=== PATIENT | male | born 1965 | race African-American/Black ===

== ENCOUNTER 2019-04-07 02:50 | Emergency (ER) | payer SELFPAY ==
[~2019-04-07] VITALS: Ht 170.2 cm; Wt 113.0 kg
[2019-04-07] MEDS ORDERED: METHYLPREDNISOLONE SOD SUCC 125 MG/2 ML VIAL IV STA (02:55)
[2019-04-07] MEDS ORDERED: ALBUTEROL (0.083%) 2.5MG/3ML NEB HHN STA (02:55)
[2019-04-07] MEDS ORDERED: MAGNESIUM 2 G PREMIX 50 ML IV STA (02:55)
[2019-04-07] MEDS ORDERED: IPRATROPIUM BROMIDE (0.02%) 0.5MG/2.5ML NEB HHN STA (02:55)
[2019-04-07 03:11] VITALS: BP 120/84
== END 2019-04-07 05:22 | disposition home or self-care (01) ==
LOC: ER 02:50
DX: J44.1 Chronic obstructive pulmonary disease with (acute) exacerbation (principal); E11.9 Type 2 diabetes mellitus without complications; F17.290 Nicotine dependence, other tobacco product, uncomplicated
CPT/HCPCS: 71045; 94644; 96365; 96366; 96375; 99285; 99406; J2930; J3475; J7611; Z7610